=== PATIENT | female | born 1930 | race Caucasian/White ===

== ENCOUNTER 2017-04-09 16:32 | Emergency (ER) | payer MEDICARE ==
[~2017-04-09] VITALS: Ht 160 cm; Wt 68.0 kg
[2017-04-09] MEDS ORDERED: IOHEXOL 350 MG/ML 10 ML VIAL (for RAD DIAG) IVCONTRAST ONE (16:33)
[2017-04-09 16:35] VITALS: BP 151/72; PULSE 60; RESP 14; TEMP 98.8; O2SAT 95
--- NOTE | 2017-04-09 17:11 | PD ---
HPI Chief Complaint: Abdominal Pain Time Seen by Provider: 16:49 Travel History International Travel<30 days: No Contact w/Intl Traveler<30days: No Traveled to known affect area: No History of Present Illness HPI This patient complains of abdominal pain. Location is left lower quadrant. She 's had intermittent flares for the last one year. She has had diverticulitis problems in the past and for a time had a colostomy which has been reversed. She has no appendix uterus or ovaries. Pain was worse today prompting her visit to the ER. She denies vomiting diarrhea or rectal bleeding or fever. No alleviating factors. No Exacerbating factors. Symptoms severity is moderate. PFSH Past Medical History Hx Anticoagulant Therapy: Yes Cardiovascular Problems: Yes (MITRAL VALVE REPLACED) Past Surgical History Hysterectomy: Yes Social History Alcohol Use: No Tobacco Use: No Substance Use: No Allergies-Medications Reported Meds & Prescriptions Reported Meds & Active Scripts Active Reported Hydrochlorothiazide 12.5 Mg Cap 12.5 Mg PO DAILY Sertraline (Sertraline HCl) 100 Mg Tab 100 Mg PO DAILY Metoprolol Succinate ER 24 HR (Metoprolol Succinate) 50 Mg Tab 50 Mg PO DAILY Gabapentin 100 Mg Cap 100 Mg PO HS Atorvastatin (Atorvastatin Calcium) 20 Mg Tab 20 Mg PO HS Buspirone (Buspirone HCl) 15 Mg Tab 15 Mg PO BID Losartan-Hydrochlorothiazide 100-25 Mg Tab 1 Tab PO DAILY Review of Systems General / Constitutional: No: Fever Eyes: No: Visual changes HENT: No: Headaches Cardiovascular: No: Chest Pain or Discomfort Respiratory: No: Shortness of Breath Gastrointestinal: Positive: Abdominal Pain Genitourinary: No: Dysuria Musculoskeletal: No: Pain Skin: No Rash Neurologic: No: Weakness Psychiatric: No: Depression Endocrine: No: Polydipsia Hematologic/Lymphatic: No: Easy Bruising Physical Exam Narrative GENERAL: Well-nourished, well-developed patient in no apparent distress. SKIN: Focused skin assessment reveals no rash and nodules. Skin is Warm and dry. HEAD: Atraumatic. Normocephalic. EYES: Pupils equal and round. No scleral icterus. No injection or drainage. ENT: No nasal bleeding or discharge. Mucous membranes pink and moist. Has some chronic scarring from basal cell carcinoma surgery of the nose NECK: Trachea midline. No JVD. CARDIOVASCULAR: Regular rate and rhythm. No murmur appreciated. RESPIRATORY: No accessory muscle use. Clear to auscultation. Breath sounds equal bilaterally. GASTROINTESTINAL: Abdomen soft, some left lower quadrant tenderness without rebound or guarding, nondistended. Hepatic and splenic margins not palpable. MUSCULOSKELETAL: No obvious deformities. No clubbing. No cyanosis. No edema. NEUROLOGICAL: Awake and alert. No obvious cranial nerve deficits. Motor grossly within normal limits. Normal speech. PSYCHIATRIC: Appropriate mood and affect; insight and judgment normal. Data Data Last Documented VS Vital Signs Date Time Temp Pulse Resp B/P (MAP) Pulse Ox O2 Delivery O2 Flow Rate FiO2 04/09/17 17:26 18 04/09/17 16:35 98.8 60 151/72 (98) 95 Orders Orders Basic Metabolic Panel (Bmp) (04/09/17 17:06) Complete Blood Count With Diff (04/09/17 17:06) Prothrombin Time / Inr (Pt) (04/09/17 17:06) Act Partial Throm Time (Ptt) (04/09/17 17:06) Ct Abd/Pel W Iv Contrast(Rout) (04/09/17 17:06) Iv Access Insert/Monitor (04/09/17 17:06) NPO (04/09/17 17:06) Iohexol 350 Inj (Omnipaque 350 Inj) (04/09/17 16:33) Labs Laboratory Tests Test 04/09/17 17:20 White Blood Count 7.9 TH/MM3 Red Blood Count 3.82 MIL/MM3 Hemoglobin 10.3 GM/DL Hematocrit 31.3 % Mean Corpuscular Volume 82.0 FL Mean Corpuscular Hemoglobin 26.9 PG Mean Corpuscular Hemoglobin Concent 32.9 % Red Cell Distribution Width 15.6 % Platelet Count 147 TH/MM3 Mean Platelet Volume 9.4 FL Neutrophils (%) (Auto) 58.1 % Lymphocytes (%) (Auto) 30.2 % Monocytes (%) (Auto) 9.0 % Eosinophils (%) (Auto) 2.3 % Basophils (%) (Auto) 0.4 % Neutrophils # (Auto) 4.6 TH/MM3 Lymphocytes # (Auto) 2.4 TH/MM3 Monocytes # (Auto) 0.7 TH/MM3 Eosinophils # (Auto) 0.2 TH/MM3 Basophils # (Auto) 0.0 TH/MM3 CBC Comment DIFF FINAL Differential Comment Prothrombin Time 11.0 SEC Prothromb Time International Ratio 1.0 RATIO Activated Partial Thromboplast Time 31.3 SEC Blood Urea Nitrogen 19 MG/DL Creatinine 0.88 MG/DL Random Glucose 95 MG/DL Calcium Level 9.2 MG/DL Sodium Level 141 MEQ/L Potassium Level 3.3 MEQ/L Chloride Level 105 MEQ/L Carbon Dioxide Level 27.4 MEQ/L Anion Gap 9 MEQ/L Estimat Glomerular Filtration Rate 61 ML/MIN MDM Medical Decision Making Medical Screen Exam Complete: Yes Emergency Medical Condition: Yes Medical Record Reviewed: Yes Differential Diagnosis Diverticulitis, colitis, ileus, obstruction Narrative Course I have reviewed the patient's electronic medical record. IV placed CBC is normal Metabolic profile is normal Coagulation studies are normal CT of abdomen and pelvis with IV contrast reveals a anterior abdominal wall hernia containing loops of bowel but no incarceration or obstruction. Patient is known for a long time she's had a hernia. There is no evidence of diverticulitis. Recommending outpatient general surgeon follow-up to discuss risks and benefits of repair versus continued observation. Diagnosis Primary Impression: Abdominal pain Qualified Codes: R10.32 - Left lower quadrant pain Additional Impression: Hernia of abdominal wall Additional Instructions: Follow-up with general surgery Follow-up with primary care Med/Other Pt SpecificInfo: Other Disposition: 01 DISCHARGE HOME Condition: Stable Clyde Farley MD Apr 09, 2017 17:11
[2017-04-09 17:50] LABS: AUTOMATED NEUTROPHIL # 4.6 TH/MM3 (1.8-7.7); BASOPHIL % 0.4 % (0.0-2.0); EOSINOPHIL # 0.2 TH/MM3 (0-0.4); EOSINOPHIL % 2.3 % (0.0-4.0); HEMATOCRIT 31.3 % (35.0-46.0); HEMO FLAGS DIFF FINAL; LYMPH % 30.2 % (9.0-44.0); LYMPHOCYTE # 2.4 TH/MM3 (1.0-4.8); MEAN CORPUSCULAR HEMOGLOBIN 26.9 PG (27.0-34.0); MEAN CORPUSCULAR HGB CONC 32.9 % (32.0-36.0); NEUT % 58.1 % (16.0-70.0); PLATELET COUNT 147 TH/MM3 (150-450); RED BLOOD COUNT 3.82 MIL/MM3 (4.00-5.30); RED CELL DISTRIBUTION WIDTH 15.6 % (11.6-17.2); WHITE BLOOD COUNT 7.9 TH/MM3 (4.0-11.0)
[2017-04-09 17:52] LABS: APTT (PATIENT) 31.3 SEC (24.3-30.1)
[2017-04-09 17:55] LABS: BICARBONATE 27.4 MEQ/L (21.0-32.0); POTASSIUM 3.3 MEQ/L (3.5-5.1)
--- NOTE | 2017-04-09 18:45 | RADRPT ---
EXAM DATE/TIME: 04/09/2017 18:03 [facility] COMPARISON: No previous studies available for comparison. INDICATIONS : Left lower abdomen pain for two months. IV CONTRAST: 76 cc Omnipaque 350 (iohexol) IV ORAL CONTRAST: No oral contrast ingested. RADIATION DOSE: 9.96 CTDIvol (mGy) MEDICAL HISTORY : Cardiovascular disease. SURGICAL HISTORY : Hysterectomy. ENCOUNTER: Initial ACUITY: 2 months PAIN SCALE: 7/10 LOCATION: Left lower quadrant TECHNIQUE: Volumetric scanning of the abdomen and pelvis was performed. Using automated exposure control and ad justment of the mA and/or kV according to patient size, radiation dose was kept as low as reasonably achievable to obtain optimal diagnostic quality images. DICOM format image data is available electro nically for review and comparison. FINDINGS: LOWER LUNGS: The visualized lower lungs are clear. LIVER: Homogeneous density without lesion. There is no dilation of the biliary tree. No calcified gallston es. SPLEEN: Normal size without lesion. PANCREAS: Within normal limits. KIDNEYS: Normal in size and shape. There is no mass, stone or hydronephrosis. 18 mm cyst is identified off th e upper pole right kidney. ADRENAL GLANDS: Within normal limits. VASCULAR: There is no aortic aneurysm. BOWEL/MESENTERY: The stomach, small bowel, and colon demonstrate no acute abnormality. There is no free intraperitone al air or fluid. ABDOMINAL WALL: Significant rectus abdominal muscle atrophy. There is a large left abdominal pelvic hernia containing multiple small bowel loops without evidence of incarceration. RETROPERITONEUM: There is no lymphadenopathy. BLADDER: No wall thickening or mass. REPRODUCTIVE: Status post hysterectomy. Left side the pelvis is obscured from a hip prosthesis. INGUINAL: There is no lymphadenopathy or hernia. MUSCULOSKELETAL: Within normal limits for patient age. CONCLUSION: 1. Left-sided anterior abdominal wall hernia containing multiple small bowel loops but no evidence of obstruction. 2. No evidence of acute inflammatory disease, hydronephrosis, biliary obstructive changes or suspicio us mass. 3. Simple right renal cyst. 4. Status post left hip replacement. Ayan Chawla MD on April 09, 2017 at 18:40 Board Certified Radiologist. This report was verified electronically.
[2017-04-09] MEDS ORDERED: HYDR12.57 PO (19:05)
[2017-04-09] MEDS ORDERED: BUSP15TA PO (19:05)
[2017-04-09] MEDS ORDERED: ATOR20TA15 PO (19:05)
[2017-04-09] MEDS ORDERED: METO50TA11 PO (19:05)
[2017-04-09] MEDS ORDERED: GABA100C4 PO (19:05)
[2017-04-09] MEDS ORDERED: LOSA100T2 PO (19:05)
[2017-04-09] MEDS ORDERED: SERT-129 PO (19:05)
== END 2017-04-09 20:02 | disposition home or self-care (01) ==
LOC: NEPE 16:32
DX: R10.32 Left lower quadrant pain (principal); Z95.4 Presence of other heart-valve replacement; Z79.01 Long term (current) use of anticoagulants; Z79.899 Other long term (current) drug therapy; K43.9 Ventral hernia without obstruction or gangrene
CPT/HCPCS: 74177; 80048; 85025; 85610; 85730; 99285; Q9967